=== PATIENT | male | born 1960 | race Caucasian/White ===

== ENCOUNTER 2018-11-21 06:01 | Day surgery (SDC) | payer OTHER ==
[~2018-11-21] VITALS: Ht 170.2 cm; Wt 105.5 kg
[2018-11-21] VITALS (14 sets, daily range): BP systolic 105–133; BP diastolic 63–86; PULSE 84–90; RESP 10–21; Ht 170.2 cm; Wt 105.5 kg
[~2018-11-21 06:01] MED LIST: CYCL10TA7 PO; GABA400C14 PO; HYDR-4011 PO; HYDR25TA6 PO
[2018-11-21] MEDS ORDERED: BUPIVACAINE 0.25% (MPF) 30 ML INJ ONE (07:29)
[2018-11-21] MEDS ORDERED: BUPIVACAINE 0.5%/EPI (SDV) 30 ML INJ ONE (07:29)
[2018-11-21] MEDS ORDERED: GELATIN SIZE 100 SPONGE ONE (07:29)
[2018-11-21] MEDS ORDERED: THROMBIN 5000 UNIT (RECOTHROM) VIAL ONE (07:29)
[2018-11-21] MEDS ORDERED: CEFAZOLIN 2 GM/50 ML (PMX) 50 ML IVPB ONE (07:30)
[2018-11-21] MEDS ORDERED: CA CHLORIDE 10% 10 ML SYRINGE ONE (07:30)
[2018-11-21] MEDS ORDERED: POLYMYXIN/BACITRACIN 1L IRRIG ONE (07:30)
[2018-11-21] MEDS ORDERED: IOHEXOL 300MG/ML 30 ML BTL ONE (07:40)
[2018-11-21] MEDS ORDERED: HEPARIN 1000 UNITS/ML 10 ML INJ ONE (07:50)
[2018-11-21] MEDS ORDERED: CEFAZOLIN 1 GM INJ ONE ×2 (08:16)
[2018-11-21] MEDS ORDERED: ROCURONIUM 50 MG INJ ONE (08:16)
[2018-11-21] MEDS ORDERED: MIDAZOLAM 1 MG/ML 2 ML INJ ONE (08:16)
[2018-11-21] MEDS ORDERED: PROPOFOL 200 MG INJ ONE (08:16)
[2018-11-21] MEDS ORDERED: PROPOFOL 20 ML ONE (08:16)
[2018-11-21] MEDS ORDERED: LABETALOL HCL 20MG INJ ONE (08:39)
[2018-11-21] MEDS ORDERED: hydrALAzine 20 MG INJ ONE (08:39)
[2018-11-21] MEDS ORDERED: METOCLOPRAMIDE 10 MG INJ ONE (08:42)
[2018-11-21] MEDS ORDERED: ONDANSETRON 4 MG INJ ONE (08:42)
[2018-11-21] MEDS ORDERED: DEXAMETHASONE 4 MG/ML 5 ML INJ ONE (08:43)
[2018-11-21] MEDS ORDERED: FENTAnyl 50 MCG/ML VIAL ONE (09:19)
[2018-11-21] MEDS ORDERED: HEMOSTATIC MATRIX SYG ZFS ONE (09:29)
[2018-11-21] MEDS ORDERED: SUGAMMADEX SODIUM 200 MG/2 ML VIAL IV ONE (09:50)
[2018-11-21] MEDS ORDERED: METOCLOPRAMIDE 10 MG INJ IV PRN (10:00)
[2018-11-21] MEDS ORDERED: ONDANSETRON 4 MG INJ IV PRN ×2 (10:00→10:30)
[2018-11-21] MEDS ORDERED: hydrALAzine 20 MG INJ IV PRN (10:00)
[2018-11-21] MEDS ORDERED: OXYCODONE/ACETAMINOPHEN (5/325) TAB PO PRN ×2 (10:00)
[2018-11-21] MEDS ORDERED: HYDROmorphONE 1 MG/5 ML IV SYRINGE IV PRN ×3 (10:00)
[2018-11-21] MEDS ORDERED: LABETALOL HCL 20MG INJ IV PRN (10:00)
[2018-11-21] MEDS ORDERED: FENTAnyl 50 MCG/ML VIAL IV PRN ×3 (10:00)
[2018-11-21] MEDS ORDERED: MEPERIDINE 25 MG INJ IV PRN (10:00)
[2018-11-21] MEDS ORDERED: EPHEDrine 25 MG/5 ML SYG IV PRN (10:00)
[2018-11-21] MEDS ORDERED: DIPHENHYDRAMINE 50 MG INJ IV PRN ×2 (10:00→10:30)
[2018-11-21] MEDS ORDERED: CEFAZOLIN 1 GM/50 ML (PMX) 50 ML IVPB SCH (10:30)
[2018-11-21] MEDS ORDERED: PROCHLORPERAZINE 10 MG TAB PO PRN (10:30)
[2018-11-21] MEDS ORDERED: CYCLOBENZAPRINE 10 MG TAB PO PRN (10:30)
[2018-11-21] MEDS ORDERED: HYDROmorphONE 0.5 MG/0.5 ML SYG IV PRN (10:30)
[2018-11-21] MEDS ORDERED: NALOXONE (0.4 MG/ML) INJ IV PRN (10:30)
[2018-11-21] MEDS ORDERED: ACETAMINOPHEN 325 MG TAB PO PRN (10:30)
[2018-11-21] MEDS ORDERED: BISACODYL 10 MG SUPP PR PRN (10:30)
[2018-11-21] MEDS ORDERED: DIPHENHYDRAMINE 25 MG CAP PO PRN (10:30)
[2018-11-21] MEDS ORDERED: HYDROCODONE/APAP (5/325) TAB PO PRN ×2 (10:30)
[2018-11-21] MEDS ORDERED: SUCCINYLCHOLINE CHLORIDE 100 MG/5 ML SYG IV ONE (13:08)
[2018-11-21] MEDS ORDERED: DOCUSATE SODIUM 100 MG CAP PO SCH (21:00)
[2018-11-22] MEDS ORDERED: PANTOPRAZOLE 40 MG INJ IV SCH (06:00)
== END 2018-11-21 13:14 | disposition home or self-care (01) ==
LOC: SDS 06:01
PROVIDERS: ATTEND Orthopaedic Surgery Orthopaedic Surgery of the Spine
DX: M51.16 Intervertebral disc disorders with radiculopathy, lumbar region (principal)
CPT/HCPCS: 72100; 86850; 86860; 86870; 86880; 86900; 86901; 86902; 86906; 86970; 86971; 86978; 86999; 88304; 97162; J0360; J0690; J1100; J1170; J1644; J2250; J2405; J2765; J3010; Q9967; V2790